=== PATIENT | male | born 1975 | race Caucasian/White ===

== ENCOUNTER 2019-06-03 09:25 | Emergency (ER) | payer SELFPAY ==
[~2019-06-03 09:25] MED LIST: AMOXICILLIN875 MG OR; AUGMENTIN875 MG OR; AUGMENTIN875TAB OR; CELEXA20 MG OR; CLEOCIN150 M1 PO; CLINDAMYCIN150 MG PO; CLONIDINE0.1 MG OR; HUMULIN 70/30; HUMULIN 70/30 SC; HYDROCHLOROT25 MG OR; LISINOP/HCTZ1 TA1 OR; LISINOP/HCTZ1 TA2 PO; LISINOP/HCTZ1 TAB PO; LORTAB 7.5 OR; NAPROSYN500 MG PO; PENICILLN VK500 MG PO; RELION 70/30 SC; ROBITUSSIN AC10 ML PO; ZESTRIL20 MG OR
== END 2019-06-03 09:36 | disposition left against medical advice (07) | DRG 951 ==
LOC: ED 09:25 → LWOBS 09:35
DX: Z91.19 Patient's noncompliance with other medical treatment and regimen (principal)

== ENCOUNTER 2019-11-11 | Emergency (ER) | payer OTHER | END 2019-11-11 13:47 | disposition home or self-care (01) | DRG 556 | DX: M25.551 Pain in right hip (principal); I10 Essential (primary) hypertension; E11.9 Type 2 diabetes mellitus without complications; V49.40XA Driver injured in collision with unspecified motor vehicles in traffic accident, initial encounter; Z79.4 Long term (current) use of insulin ==